=== PATIENT | male | born 1955 | race Caucasian/White ===

== ENCOUNTER 2022-12-15 14:01 | Emergency (ER) | payer MEDICAID ==
[~2022-12-15] VITALS: Ht 172.7 cm; Wt 84.1 kg
[2022-12-15 14:21] VITALS: BP 151/88
[2022-12-15] MEDS ORDERED: ketorolac trometh inj. 60 MG/2 ML VIAL IM ONE (14:40)
[2022-12-15] MEDS ORDERED: NAPR-56 PO (15:04)
[2022-12-15] MEDS ORDERED: PRED20TA PO (15:04)
== END 2022-12-15 15:39 | disposition home or self-care (01) ==
LOC: ER 14:01
DX: M54.59 Other low back pain (principal); R20.0 Anesthesia of skin
CPT/HCPCS: 96372; 99283; J1885